=== PATIENT | female | born 1995 | race Two or more races ===

== ENCOUNTER → 2024-09-26 | Outpatient (CLI) | payer OTHER | END | disposition home or self-care (01) | LOC: PRENATAL 12:02 | PROVIDERS: ATTEND Obstetrics & Gynecology Maternal & Fetal Medicine | DX: O44.00 Complete placenta previa NOS or without hemorrhage, unspecified trimester (principal); O26.879 Cervical shortening, unspecified trimester; Z3A.20 20 weeks gestation of pregnancy ==